=== PATIENT | female | born 1980 | race Caucasian/White ===

== ENCOUNTER 2018-09-08 12:22 | Emergency (ER) | payer MEDICAID ==
[~2018-09-08] VITALS: Ht 165.1 cm; Wt 51.8 kg
[2018-09-08 12:38] VITALS: BP 107/59; Ht 165.1 cm; Wt 51.8 kg
[2018-09-08] MEDS ORDERED: NEURONTIN 300300 MG PO (12:39)
[2018-09-08] MEDS ORDERED: KLONOPIN1 MG PO (12:40)
[2018-09-08] MEDS ORDERED: MOBIC7.5 MG PO (12:40)
[2018-09-08 13:26] LABS: BASOPHILS 0.3 % (0-2); EOSINOPHILS 3.2 % (0-7); HEMATOCRIT 41.1 % (36.0-48.0); HEMOGLOBIN 14.2 g/dL (12-16); IMMATURE GRANULOCYTES 0.1 % (0-5); LYMPHOCYTES 20.4 % (15-50); MCH 32.6 pg (26.0-34.0); MCHC 34.5 g/dL (31.0-37.0); MCV 94.5 fL (80.0-100.0); MEAN PLATELET VOLUME 11.1 fL (7.4-10.4); MONOCYTES 4.9 % (2-11); NEUTROPHILS 71.1 % (40-80); PLATELET COUNT 177 10x3/uL (130-400); RBC 4.35 10x6/uL (4.00-5.40); RDW 13.6 % (11.5-14.5); WBC 7.8 10x3/uL (4.8-10.8)
[2018-09-08 13:28] LABS: ALBUMIN 3.8 g/dL (3.4-5.0); ALKALINE PHOSPHATASE 42 U/L (46-116); ALT (SGPT) 19 U/L (10-68); BILIRUBIN - TOTAL 0.35 mg/dL (0.2-1.3); CALC OSMOLALITY 279 mosm/kg (275-300); CARBON DIOXIDE 28.3 mmol/L (21.0-32.0); CHLORIDE - SERUM 106 mmol/L (98-107); CREATININE - SERUM 0.8 mg/dL (0.6-1.3); GLUCOSE 87 mg/dL (74-106); POTASSIUM - SERUM 3.7 mmol/L (3.5-5.1); PROTEIN - SERUM 7.2 g/dL (6.4-8.2); SODIUM 142 mmol/L (136-145); UREA NITROGEN 8 mg/dL (7-18); eGFR NON AFRICAN AMERICAN 85 mL/min (90-120)
[2018-09-08 13:29] LABS: APPEARANCE CLEAR (CLEAR); BILIRUBIN NEGATIVE (NEGATIVE); COLOR YELLOW (YELLOW); EPITHELIAL CELLS 0-5 /hpf (0-5); GLUCOSE NEGATIVE (NEGATIVE); KETONE NEGATIVE (NEGATIVE); NITRITE NEGATIVE (NEGATIVE); PROTEIN NEGATIVE (NEGATIVE); RED CELLS - URINE 0-5 /hpf (0-5); UROBILINOGEN NORMAL (NORMAL); WHITE CELLS - URINE 0-5 /hpf (0-5)
[2018-09-08 13:30] LABS: BACTERIA FEW /hpf (NONE SEEN)
[2018-10-15 07:53] VITALS: Ht 165.1 cm; Wt 51.8 kg
== END 2018-09-08 17:02 | disposition left against medical advice (07) ==
LOC: D.ER 12:22
PROVIDERS: Family Medicine
DX: M62.81 Muscle weakness (generalized) (principal); M54.5 Low back pain; R20.2 Paresthesia of skin; F17.200 Nicotine dependence, unspecified, uncomplicated

== ENCOUNTER 2018-09-08 17:36 | Emergency (ER) | payer MEDICAID ==
[~2018-09-08] VITALS: Ht 165.1 cm; Wt 54.5 kg
[~2018-09-08 17:36] MED LIST: KLONOPIN1 MG PO; MOBIC7.5 MG PO; NEURONTIN 300300 MG PO
[2018-09-08 17:59] VITALS: Ht 165.1 cm; Wt 54.5 kg
[2018-09-08 21:20] LABS: GLUCOSE - CSF 66 MG/DL (40-75); PROTEIN - CSF 28 MG/DL (12-60)
[2018-09-08 21:23] LABS: APPEARANCE - CSF CLEAR
[2018-09-08 21:24] LABS: RBC - CSF 8 cmm (0-0)
[2018-09-08 21:40] VITALS: BP 119/72
[2018-09-14 17:11] LABS: IGGS - IGG INDEX CSF 0.5 (0.0-0.7); IGGS - IGG SYNTHESIS RATE CSF -3.3 mg/day (-9.9 TO +3.3)
[2018-09-18 10:20] LABS: VIRAL - RESULT No virus isolated. (())
[2018-10-15 07:53] VITALS: Ht 165.1 cm; Wt 54.5 kg
== END 2018-09-08 21:41 | disposition other institution (70) ==
LOC: D.ER 17:36
PROVIDERS: Family Medicine
DX: G61.0 Guillain-Barre syndrome (principal); R53.81 Other malaise; R53.1 Weakness; R11.2 Nausea with vomiting, unspecified

== ENCOUNTER 2018-09-13 07:35 | Emergency (ER) | payer MEDICAID ==
[~2018-09-13] VITALS: Ht 165.1 cm; Wt 52.6 kg
[2018-09-13 07:36] VITALS: Ht 165.1 cm; Wt 52.6 kg
[2018-09-13 08:23] LABS: BASOPHILS 0.2 % (0-2); EOSINOPHILS 4.7 % (0-7); HEMATOCRIT 37.4 % (36.0-48.0); HEMOGLOBIN 12.5 g/dL (12-16); IMMATURE GRANULOCYTES 0.2 % (0-5); LYMPHOCYTES 21.5 % (15-50); MCH 32.1 pg (26.0-34.0); MCHC 33.4 g/dL (31.0-37.0); MCV 95.9 fL (80.0-100.0); MEAN PLATELET VOLUME 10.2 fL (7.4-10.4); MONOCYTES 10.9 % (2-11); NEUTROPHILS 62.5 % (40-80); PLATELET COUNT 150 10x3/uL (130-400); RDW 13.8 % (11.5-14.5); WBC 4.1 10x3/uL (4.8-10.8)
[2018-09-13 08:47] LABS: ALBUMIN 3.2 g/dL (3.4-5.0); ALKALINE PHOSPHATASE 45 U/L (46-116); ALT (SGPT) 62 U/L (10-68); BILIRUBIN - TOTAL 0.26 mg/dL (0.2-1.3); CALC OSMOLALITY 278 mosm/kg (275-300); CALCIUM 8.5 mg/dL (8.5-10.1); CARBON DIOXIDE 27.5 mmol/L (21.0-32.0); CHLORIDE - SERUM 103 mmol/L (98-107); CREATININE - SERUM 0.7 mg/dL (0.6-1.3); GLUCOSE 164 mg/dL (74-106); MAGNESIUM - SERUM 1.7 mg/dL (1.8-2.4); PROTEIN - SERUM 7.4 g/dL (6.4-8.2); SODIUM 138 mmol/L (136-145); UREA NITROGEN 9 mg/dL (7-18); eGFR NON AFRICAN AMERICAN > 90 mL/min (90-120)
[2018-09-13 09:20] LABS: APPEARANCE CLEAR (CLEAR); BILIRUBIN NEGATIVE (NEGATIVE); COLOR COLORLESS (YELLOW); GLUCOSE NEGATIVE (NEGATIVE); HCG URINE NEGATIVE (NEGATIVE); KETONE NEGATIVE (NEGATIVE); NITRITE NEGATIVE (NEGATIVE); PROTEIN NEGATIVE (NEGATIVE); UROBILINOGEN NORMAL (NORMAL)
[2018-09-13 09:23] LABS: UDS - AMPHET NEGATIVE QUAL (NEGATIVE); UDS - BARB NEGATIVE QUAL (NEGATIVE); UDS - BENZO NEGATIVE QUAL (NEGATIVE); UDS - COCAINE NEGATIVE QUAL (NEGATIVE); UDS - OPIATE NEGATIVE QUAL (NEGATIVE); UDS - PCP NEGATIVE QUAL (NEGATIVE); UDS - THC POSITIVE QUAL (NEGATIVE)
[2018-09-13 09:29] VITALS: BP 125/37
[2018-10-15 07:53] VITALS: Ht 165.1 cm; Wt 52.6 kg
== END 2018-09-13 10:31 | disposition other institution (70) ==
LOC: D.ER 07:35
PROVIDERS: Family Medicine
DX: G40.909 Epilepsy, unspecified, not intractable, without status epilepticus (principal); R73.9 Hyperglycemia, unspecified; E83.42 Hypomagnesemia

== ENCOUNTER → 2018-10-07 17:46 | Outpatient (CLI) | payer MEDICAID | END | disposition home or self-care (01) | LOC: D.LABREF 17:46 | DX: R31.9 Hematuria, unspecified (principal) ==

== ENCOUNTER → 2018-10-13 09:05 | Outpatient (CLI) | payer MEDICAID ==
[2018-09-13 07:36] VITALS: Wt 52.2 kg
[2018-10-15 07:53] VITALS: Wt 52.2 kg
== END | disposition home or self-care (01) ==
LOC: D.CT 08:30
DX: R31.0 Gross hematuria (principal)

== ENCOUNTER 2018-10-15 06:53 | Day surgery (SDC) | payer MEDICAID ==
[2018-10-15 07:10] LABS: HEMATOCRIT 41.9 % (36.0-48.0); HEMOGLOBIN 14.2 g/dL (12-16); MCH 32.9 pg (26.0-34.0); MCHC 33.9 g/dL (31.0-37.0); MEAN PLATELET VOLUME 10.5 fL (7.4-10.4); RBC 4.32 10x6/uL (4.00-5.40); RDW 13.7 % (11.5-14.5); WBC 8.6 10x3/uL (4.8-10.8)
== END 2018-10-15 11:30 | disposition home or self-care (01) ==
LOC: D.OPS 06:53
PROVIDERS: Anesthesiology
DX: N30.11 Interstitial cystitis (chronic) with hematuria (principal)

== ENCOUNTER 2019-10-11 20:44 | Emergency (ER) | payer MEDICAID ==
[~2019-10-11] VITALS: Ht 167.6 cm; Wt 56.8 kg
[2019-10-11 21:00] VITALS: Ht 167.6 cm; Wt 56.8 kg
[2019-10-11] MEDS ORDERED: CYMBALTA30 MG PO (21:01)
[2019-10-11 21:45] LABS: BASOPHILS 0.1 % (0-2); EOSINOPHILS 5.2 % (0-7); HEMATOCRIT 41.8 % (36.0-48.0); HEMOGLOBIN 14.2 g/dL (12-16); IMMATURE GRANULOCYTES 0.1 % (0-5); LYMPHOCYTES 26.4 % (15-50); MCH 32.6 pg (26.0-34.0); MCV 95.9 fL (80.0-100.0); MEAN PLATELET VOLUME 10.8 fL (7.4-10.4); NEUTROPHILS 61.2 % (40-80); PLATELET COUNT 200 10x3/uL (130-400); RBC 4.36 10x6/uL (4.00-5.40); RDW 13.4 % (11.5-14.5); WBC 8.5 10x3/uL (4.8-10.8)
[2019-10-11 21:49] LABS: APTT 31.3 SECONDS (22.8-39.4); CALC OSMOLALITY 272 mosm/kg (275-300); CALCIUM 9.5 mg/dL (8.5-10.1); CARBON DIOXIDE 24.4 mmol/L (21.0-32.0); CHLORIDE - SERUM 103 mmol/L (98-107); CREATININE - SERUM 0.7 mg/dL (0.6-1.3); INR 1.02 (0.85-1.17); POTASSIUM - SERUM 3.7 mmol/L (3.5-5.1); PROTIME 12.9 SECONDS (11.6-15.0); SODIUM 137 mmol/L (136-145); UREA NITROGEN 11 mg/dL (7-18); eGFR NON AFRICAN AMERICAN > 90 mL/min (90-120)
[2019-10-11 21:51] LABS: GLUCOSE 90 mg/dL (74-106)
[2019-10-11 21:56] LABS: ALBUMIN 3.9 g/dL (3.4-5.0); ALKALINE PHOSPHATASE 46 U/L (46-116); ALT (SGPT) 21 U/L (10-68); BILIRUBIN - TOTAL 0.35 mg/dL (0.2-1.3)
[2019-10-11 22:33] LABS: APPEARANCE CLEAR (CLEAR); BILIRUBIN NEGATIVE (NEGATIVE); COLOR YELLOW (YELLOW); GLUCOSE NEGATIVE (NEGATIVE); KETONE NEGATIVE (NEGATIVE); NITRITE NEGATIVE (NEGATIVE); PROTEIN NEGATIVE (NEGATIVE); UROBILINOGEN NORMAL (NORMAL)
[2019-10-12 01:12] VITALS: BP 117/78
== END 2019-10-12 01:13 | disposition other institution (70) ==
LOC: D.ER 20:44
PROVIDERS: Family Medicine
DX: G61.0 Guillain-Barre syndrome (principal); M79.7 Fibromyalgia

== ENCOUNTER 2021-02-20 19:39 | Emergency (ER) | payer MEDICAID ==
[~2021-02-20 19:39] MED LIST changes: +CYMBALTA30 MG PO
[2021-02-20 19:46] VITALS: Ht 167.6 cm
[2021-02-20 21:36] VITALS: BP 102/56
== END 2021-02-20 21:36 | disposition home or self-care (01) ==
LOC: D.ER 19:39
DX: G62.9 Polyneuropathy, unspecified (principal); G89.29 Other chronic pain; M79.7 Fibromyalgia; G61.0 Guillain-Barre syndrome; M79.605 Pain in left leg; M79.604 Pain in right leg

== ENCOUNTER 2021-03-25 18:28 | Emergency (ER) | payer MEDICAID ==
[~2021-03-25] VITALS: Ht 167.6 cm; Wt 59.1 kg
[2021-03-25 18:31] VITALS: BP 100/74; Ht 167.6 cm; Wt 59.1 kg
[2021-03-25 19:07] LABS: BASOPHILS 0.1 % (0-2); EOSINOPHILS 0.9 % (0-7); HEMATOCRIT 40.2 % (36.0-48.0); HEMOGLOBIN 13.9 g/dL (12-16); IMMATURE GRANULOCYTES 0.2 % (0-5); LYMPHOCYTE ABS# 1.63 10x3/uL (1.18-3.74); MCH 32.1 pg (26.0-34.0); MCHC 34.6 g/dL (31.0-37.0); MCV 92.8 fL (80.0-100.0); MEAN PLATELET VOLUME 10.4 fL (7.4-10.4); MONOCYTES 11.9 % (2-11); NEUTROPHIL ABS# 10.16 10x3/uL (1.56-6.13); NEUTROPHILS 74.9 % (40-80); PLATELET COUNT 235 10x3/uL (130-400); RBC 4.33 10x6/uL (4.00-5.40); RDW 13.2 % (11.5-14.5); WBC 13.6 10x3/uL (4.8-10.8)
[2021-03-25 19:21] LABS: CALC OSMOLALITY 263 mosm/kg (275-300); CALCIUM 8.7 mg/dL (8.5-10.1); CHLORIDE - SERUM 100 mmol/L (98-107); CREATININE - SERUM 0.7 mg/dL (0.6-1.3); GLUCOSE 89 mg/dL (74-106); POTASSIUM - SERUM 3.4 mmol/L (3.5-5.1); SODIUM 133 mmol/L (136-145); UREA NITROGEN 10 mg/dL (7-18); eGFR NON AFRICAN AMERICAN > 90 mL/min (90-120)
[2021-03-25 19:28] LABS: ALBUMIN 3.8 g/dL (3.4-5.0); ALKALINE PHOSPHATASE 66 U/L (30-120); ALT (SGPT) 22 U/L (10-68); BILIRUBIN - TOTAL 0.99 mg/dL (0.2-1.3); PROTEIN - SERUM 7.6 g/dL (6.4-8.2)
== END 2021-03-25 19:39 | disposition left against medical advice (07) ==
LOC: D.ER 18:28
PROVIDERS: Family Medicine
DX: R05 Cough (principal); H53.8 Other visual disturbances; R68.89 Other general symptoms and signs; Z53.29 Procedure and treatment not carried out because of patient's decision for other reasons